=== PATIENT | female | born 1990 | race Caucasian/White ===

== ENCOUNTER 2017-05-26 05:19 | Inpatient (IN) | payer BC ==
[2017-05-26] MEDS ORDERED: Carboprost Tromethamine 250 MCG/1 ML Amp IM PRN (05:28)
[2017-05-26] MEDS ORDERED: Methylergonovine 0.2 MG/1 ML Amp IM PRN (05:28)
[2017-05-26] MEDS ORDERED: Water For Irrigation,Sterile 1,000 ML Container IRR PRN (05:28)
[2017-05-26] MEDS ORDERED: Sodium Chloride 0.9% 10 ML Syringe FLUSH PRN (05:28)
[2017-05-26] MEDS ORDERED: Sodium Chloride 0.9% 2.5 ML Syringe FLUSH PRN (05:28)
[2017-05-26] MEDS ORDERED: Lidocaine 1% 50 ML MDV INJECT PRN (05:28)
[2017-05-26] MEDS ORDERED: Terbutaline 1 MG/ML SDV SUBCUT PRN (05:28)
[2017-05-26] MEDS ORDERED: Nalbuphine 10 MG/1 ML Vial IVPUSH PRN (05:28)
[2017-05-26] MEDS ORDERED: Misoprostol 200 MCG Tab PO PRN (05:28)
[2017-05-26] MEDS ORDERED: Oxytocin/0.9 % Sodium Chloride 30 UNIT/500 ML BAG IV SCH ×2 (05:30)
[2017-05-26] MEDS: Lactated Ringers 1,000 ML IV SCH ×4 (06:00→13:29)
--- NOTE | 2017-05-26 08:41 | PCM.LDHP ---
L&D History of Present Illness - General Date of Service: 05/26/17 Admit Problem/Dx: Patient Status Order with Admit Dx/Problem 05/26/17 05:28 Patient Status [ADT] Routine Admission Diagnosis/Problem Admission Diagnosis/Problem - planned 05/26/17 08:39 26yo EDC 05/22/2017 40 4/7wks, IOL for post dates, A+, RI, GBS neg. 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 Oncologic: Reports: Breast - Tobacco Use Smoking Status *Q: Never Smoker Second Hand Smoke Exposure: No - Caffeine Use Caffeine Use: Reports: Coffee - Recreational Drug Use Recreational Drug Use: No H&P Review of Systems - Review of Systems: Review Of Systems: See Below General: Reports: No Symptoms HEENT: Reports: No Symptoms Pulmonary: Reports: No Symptoms Cardiovascular: Reports: No Symptoms Gastrointestinal: Reports: No Symptoms Genitourinary: Reports: No Symptoms Musculoskeletal: Reports: No Symptoms Skin: Reports: No Symptoms Psychiatric: Reports: No Symptoms Neurological: Reports: No Symptoms Hematologic/Lymphatic: Reports: No Symptoms Immunologic: Reports: No Symptoms L&D Exam - Exam Exam: See Below - Vital Signs Weight: 81.647 kg - OB Specific Movement: Active Heart Tones: Present Heart Rate (FHR) Variability: Moderate (6-25 bmp) Presentation: Vertex - Holloway Score Holloway Score Cervix Position: Midposition Holloway Score Consistency: Soft Holloway Score Effacement: >80% Holloway Score Dilation: 3-4 cm Holloway Score Infant's Station: -2 Holloway Score Total: 9 - Exam General: Alert, Oriented, Cooperative HEENT: Hearing Intact Lungs: Normal Respiratory Effort GI/Abdominal Exam: Soft, Non-Tender, No Organomegaly (gravid) Rectal Exam: Deferred Genitourinary: Normal external exam, Normal bimanual exam, Cervical dilitation Back Exam: Full Range of Motion Extremities: Normal Range of Motion, Non-Tender, No Pedal Edema, Normal Capillary Refill Skin: Warm, Dry, Intact Neurological: Reflexes Equal Bilateral, Normal Speech, Normal Tone Psychiatric: Alert, Normal Affect, Normal Mood - Patient Data Lab Results Last 24 hrs: Laboratory Results - last 24 hr 05/26/17 05/26/17 Range/Units 05:59 05:59 WBC 10.12 (4.0-11.0) K/uL RBC 3.81 L (4.30-5.90) M/uL Hgb 11.9 L (12.0-16.0) g/dL Hct 35.2 L (36.0-46.0) % MCV 92.4 (80.0-98.0) fL MCH 31.2 (27.0-32.0) pg MCHC 33.8 (31.0-37.0) g/dL RDW Std Deviation 46.5 (28.0-62.0) fl RDW Coeff of Karly 14 (11.0-15.0) % Plt Count 323 (150-400) K/uL MPV 10.10 (7.40-12.00) fL Nucleated RBC % 0.0 /100WBC Nucleated RBCs # 0 K/uL Blood Type A POSITIVE Antibody Screen NEGATIVE Result Diagrams: 05/26/17 05:59 - Problem List (1) Supervision of normal IUP (intrauterine ) in primigravida SNOMED Code(s): 12526041, 400821971, 459133909 ICD Code: Z34.00 - ENCNTR FOR SUPRVSN OF NORMAL FIRST , UNSP TRIMESTER Status: Acute Current Visit: Yes Qualifiers: Trimester: third trimester Qualified Code(s): Z34.03 - Encounter for supervision of normal first , third trimester (2) Post-dates SNOMED Code(s): 35003113 ICD Code: O48.0 - POST-TERM Status: Acute Priority: High Current Visit: Yes Qualifiers: Post-term type: 40-42 weeks gestation Qualified Code(s): O48.0 - Post-term Problem List Initiated/Reviewed/Updated: Yes Orders Last 24hrs: Active Orders 24 hr Category Date Time Status Patient Status [ADT] Routine ADT 05/26/17 05:28 Active Communication Order [RC] ASDIRECTED Care 05/26/17 05:28 Active May Shower [RC] ASDIRECTED Care 05/26/17 05:28 Active Notify Provider [RC] PRN Care 05/26/17 05:28 Active Oxygen Therapy [RC] ASDIRECTED Care 05/26/17 05:28 Active Up ad Elaine [RC] ASDIRECTED Care 05/26/17 05:28 Active Vital Signs [RC] PER UNIT ROUTINE Care 05/26/17 05:28 Active Regular Diet [DIET] Diet 05/26/17 Breakfast Active Carboprost Tromethamine [Hemabate DS] Med 05/26/17 05:28 Active 250 mcg IM ASDIRECTED PRN Lactated Ringers [Ringers, Lactated] 1,000 ml Med 05/26/17 05:30 Active IV ASDIRECTED Lidocaine 1% [Xylocaine 1%] Med 05/26/17 05:28 Active 50 ml INJECT .ONCE PRN Methylergonovine [Methergine] Med 05/26/17 05:28 Active 0.2 mg IM ASDIRECTED PRN Misoprostol [Cytotec] Med 05/26/17 05:28 Active 200 mcg PO .ONCE PRN Nalbuphine [Nubain] Med 05/26/17 05:28 Active 10 mg IVPUSH Q1H PRN Oxytocin/0.9 % Sodium Chloride [Oxytocin 30 Unit/500 ML Med 05/26/17 05:30 Active -NS] 30 unit in 500 ml IV TITRATE Oxytocin/0.9 % Sodium Chloride [Oxytocin 30 Unit/500 ML Med 05/26/17 05:30 Active -NS] 30 unit in 500 ml IV TITRATE Sodium Chloride 0.9% [Saline Flush] Med 05/26/17 05:28 Active 10 ml FLUSH ASDIRECTED PRN Sodium Chloride 0.9% [Saline Flush] Med 05/26/17 05:28 Active 2.5 ml FLUSH ASDIRECTED PRN Terbutaline [Brethine] Med 05/26/17 05:28 Active 0.25 mg SUBCUT ASDIRECTED PRN Water For Irrigation,Sterile [Sterile Water for Med 05/26/17 05:28 Active Irrigation] 1,000 ml IRR ASDIRECTED PRN Scalp Electrode [WOMSER] Per Unit Routine Oth 05/26/17 05:28 Ordered Medication Administration Instruction [OM.PC] Q3H Oth 05/26/17 05:30 Ordered Peripheral IV Insertion Adult [OM.PC] Routine Oth 05/26/17 05:28 Ordered Resuscitation Status Routine Resus Stat 05/26/17 05:28 Ordered Medication Orders Carboprost Tromethamine (Hemabate Ds) 250 mcg IM ASDIRECTED PRN PRN Reason: Post Hemorrhage Lactated Ringer's (Ringers, Lactated) 1,000 mls @ 150 mls/hr IV ASDIRECTED MARCO A Last Admin: 05/26/17 06:00 Dose: 150 mls/hr Oxytocin/Sodium Chloride (Oxytocin 30 Unit/500 Ml-Ns) 30 unit in 500 mls @ 500 mls/hr IV TITRATE MARCO A Oxytocin/Sodium Chloride (Oxytocin 30 Unit/500 Ml-Ns) 30 unit in 500 mls @ 2 mls/hr IV TITRATE MARCO A; 2 MUNITS/MIN PRN Reason: Protocol Last Titration: 05/26/17 08:15 Dose: 6 munits/min, 6 mls/hr Titration: 05/26/17 07:46 Dose: 4 munits/min, 4 mls/hr Admin: 05/26/17 06:29 Dose: 2 munits/min, 2 mls/hr Lidocaine HCl (Xylocaine 1%) 50 ml INJECT .ONCE PRN PRN Reason: Laceration repair Methylergonovine Maleate (Methergine) 0.2 mg IM ASDIRECTED PRN PRN Reason: Post Hemorrhage Misoprostol (Cytotec) 200 mcg PO .ONCE PRN PRN Reason: Post Hemorrhage Nalbuphine HCl (Nubain) 10 mg IVPUSH Q1H PRN PRN Reason: Pain (severe 7-10) Sodium Chloride (Saline Flush) 10 ml FLUSH ASDIRECTED PRN PRN Reason: Keep Vein Open Sodium Chloride (Saline Flush) 2.5 ml FLUSH ASDIRECTED PRN PRN Reason: Keep Vein Open Sterile Water (Sterile Water For Irrigation) 1,000 ml IRR ASDIRECTED PRN PRN Reason: delivery Terbutaline Sulfate (Brethine) 0.25 mg SUBCUT ASDIRECTED PRN PRN Reason: Tacysystole Assessment/Plan Comment:: IOL A: 26yo EDC 05/22/2017 40 4/7wks, IOL for post dates, A+, RI, GBS neg. P: Admit to L&D, pitocin per protocol, anticipate .
[2017-05-26] MEDS ORDERED: fentaNYL 100 MCG/2 ML SDV ONE (13:13)
[2017-05-26] MEDS ORDERED: Ropivacaine HCl/PF 100 ML ONE (13:14)
--- NOTE | 2017-05-26 14:36 | PCM.PREANE ---
Preanesthetic Assessment - Procedure Proposed Procedure: labor epidural - Anesthesia/Transfusion/Family Hx Anesthesia History: Prior Anesthesia Without Reaction Family History of Anesthesia Reaction: No Transfusion History: No Prior Transfusion(s) Intubation History: Unknown Additional History: - Review of Systems General: Other (active labor pain) Pulmonary: No Symptoms Cardiovascular: No Symptoms Gastrointestinal: No Symptoms, Other (GERD) Neurological: Other (labor pain) - Physical Assessment NPO Status Date: 05/25/17 NPO Status Time: 23:00 Height: 5 ft 3 in Weight: 180 lb ASA Class: 2 Mental Status: Alert & Oriented x3 Airway Class: Mallampati = 1 Dentition: Reports: Normal Dentition Thyro-Mental Finger Breadths: 3 Mouth Opening Finger Breadths: 3 ROM/Head Extension: Full Lungs: Clear to Auscultation, Normal Respiratory Effort Cardiovascular: Regular Rate, Regular Rhythm, No Murmurs - Lab Values: Laboratory Last Values WBC 10.12 K/uL (4.0-11.0) 05/26/17 05:59 RBC 3.81 M/uL (4.30-5.90) L 05/26/17 05:59 Hgb 11.9 g/dL (12.0-16.0) L 05/26/17 05:59 Hct 35.2 % (36.0-46.0) L 05/26/17 05:59 MCV 92.4 fL (80.0-98.0) 05/26/17 05:59 MCH 31.2 pg (27.0-32.0) 05/26/17 05:59 MCHC 33.8 g/dL (31.0-37.0) 05/26/17 05:59 RDW Std Deviation 46.5 fl (28.0-62.0) 05/26/17 05:59 RDW Coeff of Karly 14 % (11.0-15.0) 05/26/17 05:59 Plt Count 323 K/uL (150-400) 05/26/17 05:59 MPV 10.10 fL (7.40-12.00) 05/26/17 05:59 Nucleated RBC % 0.0 /100WBC 05/26/17 05:59 Nucleated RBCs # 0 K/uL 05/26/17 05:59 Blood Type A POSITIVE 05/26/17 05:59 Antibody Screen NEGATIVE 05/26/17 05:59 - Allergies Allergies/Adverse Reactions: Allergies Allergy/AdvReac Type Severity Reaction Status Date / Time No Known Allergies Allergy Verified 05/26/17 05:27 - Blood Blood Available: No Product(s) Available: None - Anesthesia Plan Pre-Op Medication Ordered: None - Acknowledgements Anesthesia Type Planned: Epidural Pt an Appropriate Candidate for the Planned Anesthesia: Yes Alternatives and Risks of Anesthesia Discussed w Pt/Guardian: Yes Pt/Guardian Understands and Agrees with Anesthesia Plan: Yes PreAnesthesia Questionnaire - Past Health History Medical/Surgical History: Denies 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: - Infectious Disease History Infectious Disease History: Reports: Chicken Pox - Past Surgical History HEENT Surgical History: Reports: Oral Surgery - SUBSTANCE USE Smoking Status *Q: Never Smoker Tobacco Use Within Last Twelve Months: No Second Hand Smoke Exposure: No Recreational Drug Use History: No - CURRENT (IN HOUSE) MEDS Current Meds: Current Medications Carboprost Tromethamine (Hemabate Ds) 250 mcg IM ASDIRECTED PRN PRN Reason: Post Hemorrhage Lactated Ringer's (Ringers, Lactated) 1,000 mls @ 150 mls/hr IV ASDIRECTED MARCO A Last Admin: 05/26/17 13:29 Dose: 150 mls/hr Oxytocin/Sodium Chloride (Oxytocin 30 Unit/500 Ml-Ns) 30 unit in 500 mls @ 500 mls/hr IV TITRATE MARCO A Oxytocin/Sodium Chloride (Oxytocin 30 Unit/500 Ml-Ns) 30 unit in 500 mls @ 2 mls/hr IV TITRATE MARCO A; 2 MUNITS/MIN PRN Reason: Protocol Last Titration: 05/26/17 11:51 Dose: 6 munits/min, 6 mls/hr Lidocaine HCl (Xylocaine 1%) 50 ml INJECT .ONCE PRN PRN Reason: Laceration repair Methylergonovine Maleate (Methergine) 0.2 mg IM ASDIRECTED PRN PRN Reason: Post Hemorrhage Misoprostol (Cytotec) 200 mcg PO .ONCE PRN PRN Reason: Post Hemorrhage Nalbuphine HCl (Nubain) 10 mg IVPUSH Q1H PRN PRN Reason: Pain (severe 7-10) Sodium Chloride (Saline Flush) 10 ml FLUSH ASDIRECTED PRN PRN Reason: Keep Vein Open Sodium Chloride (Saline Flush) 2.5 ml FLUSH ASDIRECTED PRN PRN Reason: Keep Vein Open Sterile Water (Sterile Water For Irrigation) 1,000 ml IRR ASDIRECTED PRN PRN Reason: delivery Terbutaline Sulfate (Brethine) 0.25 mg SUBCUT ASDIRECTED PRN PRN Reason: Tacysystole Discontinued Medications Fentanyl (Sublimaze) Confirm Administered Dose 100 mcg .ROUTE .STK-MED ONE Stop: 05/26/17 13:14 Ropivacaine (Naropin 0.2%) Confirm Administered Dose 100 mls @ as directed .ROUTE .STK-MED ONE Stop: 05/26/17 13:15
[2017-05-26] MEDS ORDERED: Docusate Sodium 100 MG Cap PO PRN (19:39)
[2017-05-26] MEDS ORDERED: Acetaminophen 500 MG Tab PO PRN ×2 (19:39)
[2017-05-26] MEDS ORDERED: Lanolin 100% Cream 7 GM Tube TOP PRN (19:39)
[2017-05-26] MEDS ORDERED: Bisacodyl 10 MG Supp RECTAL PRN (19:39)
[2017-05-26] MEDS ORDERED: Ibuprofen 400 MG Tab PO PRN (19:39)
[2017-05-26] MEDS ORDERED: Witch Hazel Medicated Pads 40/Jar TOP PRN (19:39)
[2017-05-26] MEDS ORDERED: Benzocaine/Menthol 20%-0.5% Spray 78 GM Cannister TOP PRN (19:39)
[2017-05-26] MEDS ORDERED: oxyCODONE 5 MG Tab PO PRN (19:39)
--- NOTE | 2017-05-26 19:47 | PCM.DEL ---
L & D Note - General Info Date of Service: 05/26/17 Mother's Due Date: 05/22/17 - Delivery Note Labor: Induced by Oxytocin Delivery Outcome: Livebirth Delivery Method: Spontaneous Vaginal Delivery-Single Infant Delivery Mode: Spontaneous Presentation: Vertex Nuchal Cord: Present Anesthesia Type: Epidural Amniotic Fluid Description: Meconium Stained Episiotomy Type: None Laceration: 1st Degree, Perineal Suture type: Vicryl Suture size: 3-0 Placenta: Intact, Spontaneous Cord: 3 Vessels Estimated Blood Loss: 150 Resuscitation Needed: No Score 1 min: 8 Score 5 min: 9 Second Stage Interventions: Reports: Pushing Effectively Delivery Comments (Free Text/Narrative):: of viable male over intact perineum. Head delivered with great pushing. Nuchel x1 reduced over head, shoulders and body followed easily. to mothers abd with RN at for eval. Delayed cord clamping. Pitocin to IVF. Cord clamped x2 and cut by FOB. Cord blood collected. Placenta delivered grossly intact. Inspection noted 1st degree lac that was repaired in the usual manor with 3-0 [place]. Bimanual WNL. EBL 150cc, 8/9. Wt: 7lb 15oz. counts correct. Mother and infant left in stable condition bonding well. Induction Criteria - Holloway Score Holloway Score Dilation: 3-4 cm Holloway Score Effacement: >80% Holloway Score Infant's Station: -2 Holloway Score Consistency: Soft Holloway Score Cervix Position: Midposition Holloway Score Total: 9 Holloway Score Presenting Part: Reports: Cephalic - Induction Gestational Age >/= 39 wks: Yes Medical Indication: post dates Estimated Pelvis: Reports: Adequate Reassuring Monitoring Strip: Yes Absence of Tachy Systole: Yes - General Info Date of Service: 05/26/17 Admission Dx/Problem (Free Text): Patient Status Order with Admit Dx/Problem 05/26/17 05:28 Patient Status [ADT] Routine Admission Diagnosis/Problem Admission Diagnosis/Problem - planned 05/26/17 08:39 26yo EDC 05/22/2017 40 4/7wks, IOL for post dates, A+, RI, GBS neg. Functional Status: Reports: Pain Controlled - Review of Systems General: Reports: No Symptoms HEENT: Reports: No Symptoms Pulmonary: Reports: No Symptoms Cardiovascular: Reports: No Symptoms Gastrointestinal: Reports: No Symptoms Genitourinary: Reports: No Symptoms Musculoskeletal: Reports: No Symptoms Skin: Reports: No Symptoms Neurological: Reports: No Symptoms Psychiatric: Reports: No Symptoms - Patient Data Weight - Most Recent: 81.647 kg Lab Results Last 24 Hours: Laboratory Results - last 24 hr 05/26/17 05/26/17 Range/Units 05:59 05:59 WBC 10.12 (4.0-11.0) K/uL RBC 3.81 L (4.30-5.90) M/uL Hgb 11.9 L (12.0-16.0) g/dL Hct 35.2 L (36.0-46.0) % MCV 92.4 (80.0-98.0) fL MCH 31.2 (27.0-32.0) pg MCHC 33.8 (31.0-37.0) g/dL RDW Std Deviation 46.5 (28.0-62.0) fl RDW Coeff of Karly 14 (11.0-15.0) % Plt Count 323 (150-400) K/uL MPV 10.10 (7.40-12.00) fL Nucleated RBC % 0.0 /100WBC Nucleated RBCs # 0 K/uL Blood Type A POSITIVE Antibody Screen NEGATIVE Med Orders - Current: Current Medications Acetaminophen (Tylenol Extra Strength) 500 mg PO Q4H PRN PRN Reason: Pain Acetaminophen (Tylenol Extra Strength) 1,000 mg PO Q4H PRN PRN Reason: Pain Benzocaine/Menthol (Dermoplast Pain Relief 20%-0.5% Nursery) 78 gm TOP ASDIRECTED PRN PRN Reason: Perineal Comfort Measure Bisacodyl (Dulcolax) 10 mg RECTAL .ONCE PRN PRN Reason: Constipation Docusate Sodium (Colace) 100 mg PO BID PRN PRN Reason: Constipation Emollient Ointment (Lansinoh Hpa) 0 gm TOP ASDIRECTED PRN PRN Reason: Sore Nipples Ibuprofen (Motrin) 400 mg PO Q4H PRN PRN Reason: Pain Ibuprofen (Motrin) 800 mg PO Q6H PRN PRN Reason: Pain Oxycodone HCl (Oxycodone) 5 mg PO Q2H PRN PRN Reason: Pain Discontinued Medications Carboprost Tromethamine (Hemabate Ds) 250 mcg IM ASDIRECTED PRN PRN Reason: Post Hemorrhage Fentanyl (Sublimaze) Confirm Administered Dose 100 mcg .ROUTE .STK-MED ONE Stop: 05/26/17 13:14 Lactated Ringer's (Ringers, Lactated) 1,000 mls @ 150 mls/hr IV ASDIRECTED MARCO A Last Admin: 05/26/17 13:29 Dose: 150 mls/hr Oxytocin/Sodium Chloride (Oxytocin 30 Unit/500 Ml-Ns) 30 unit in 500 mls @ 500 mls/hr IV TITRATE MARCO A Oxytocin/Sodium Chloride (Oxytocin 30 Unit/500 Ml-Ns) 30 unit in 500 mls @ 2 mls/hr IV TITRATE MARCO A; 2 MUNITS/MIN PRN Reason: Protocol Last Titration: 05/26/17 11:51 Dose: 6 munits/min, 6 mls/hr Ropivacaine (Naropin 0.2%) Confirm Administered Dose 100 mls @ as directed .ROUTE .Cuculus ONE Stop: 05/26/17 13:15 Lidocaine HCl (Xylocaine 1%) 50 ml INJECT .ONCE PRN PRN Reason: Laceration repair Methylergonovine Maleate (Methergine) 0.2 mg IM ASDIRECTED PRN PRN Reason: Post Hemorrhage Misoprostol (Cytotec) 200 mcg PO .ONCE PRN PRN Reason: Post Hemorrhage Nalbuphine HCl (Nubain) 10 mg IVPUSH Q1H PRN PRN Reason: Pain (severe 7-10) Sodium Chloride (Saline Flush) 10 ml FLUSH ASDIRECTED PRN PRN Reason: Keep Vein Open Sodium Chloride (Saline Flush) 2.5 ml FLUSH ASDIRECTED PRN PRN Reason: Keep Vein Open Sterile Water (Sterile Water For Irrigation) 1,000 ml IRR ASDIRECTED PRN PRN Reason: delivery Terbutaline Sulfate (Brethine) 0.25 mg SUBCUT ASDIRECTED PRN PRN Reason: Tacysystole - Exam General: Alert, Oriented, Cooperative, No Acute Distress Lungs: Normal Respiratory Effort GI/Abdominal Exam: Soft, Non-Tender (Female) Exam: Normal External Exam, Normal Bimanual Exam, Vaginal Bleeding Back Exam: Full Range of Motion Extremities: Normal Range of Motion, Non-Tender, No Pedal Edema, Normal Capillary Refill Skin: Warm, Dry, Intact Wound/Incisions: Healing Well Neurological: No New Focal Deficit, Normal Speech, Normal Tone Psy/Mental Status: Alert, Normal Affect, Normal Mood - Problem List & Annotations (1) Supervision of normal IUP (intrauterine ) in primigravida SNOMED Code(s): 86084378, 811800983, 073116635 Code(s): Z34.00 - ENCNTR FOR SUPRVSN OF NORMAL FIRST , UNSP TRIMESTER Status: Acute Current Visit: Yes Qualifiers: Trimester: third trimester Qualified Code(s): Z34.03 - Encounter for supervision of normal first , third trimester (2) Post-dates SNOMED Code(s): 89462690 Code(s): O48.0 - POST-TERM Status: Acute Priority: High Current Visit: Yes Qualifiers: Post-term type: 40-42 weeks gestation Qualified Code(s): O48.0 - Post-term - Problem List Review Problem List Initiated/Reviewed/Updated: Yes - My Orders Last 24 Hours: My Active Orders 05/26/17 19:39 May Shower [RC] ASDIRECTED Up ad Elaine [RC] ASDIRECTED Vital Signs [RC] PER UNIT ROUTINE Acetaminophen [Tylenol Extra Strength] 1,000 mg PO Q4H PRN Acetaminophen [Tylenol Extra Strength] 500 mg PO Q4H PRN Benzocaine/Menthol [Dermoplast Pain Relief 20%-0.5% Nursery] 78 gm TOP ASDIRECTED PRN Bisacodyl [Dulcolax] 10 mg RECTAL .ONCE PRN Docusate Sodium [Colace] 100 mg PO BID PRN Ibuprofen [Motrin] 400 mg PO Q4H PRN Ibuprofen [Motrin] 800 mg PO Q6H PRN Lanolin [Lansinoh HPA] See Dose Instructions TOP ASDIRECTED PRN Witch Kaitlynn [Tucks] 1 pad TOP ASDIRECTED PRN oxyCODONE 5 mg PO Q2H PRN Assess Lochia [WOMSER] Per Unit Routine Assess Uterine Involution [WOMSER] Per Unit Routine Peripheral IV Discontinue [OM.PC] Routine Resuscitation Status Routine 05/26/17 19:40 Patient Status [ADT] Routine 05/27/17 Breakfast Regular Diet [DIET] - Assessment Assessment:: A: of viable male. APGARS 8/9, Wt: 7lb 15oz. EBL 150cc, 1st lac with repair. Stable - Plan Plan:: IOL A: 26yo EDC 05/22/2017 40 4/7wks, IOL for post dates, A+, RI, GBS neg. P: Admit to L&D, pitocin per protocol, anticipate . Delivery P: Admit to PP, routine pp plan of care.
[2017-05-26] MEDS: Ibuprofen 800 MG Tab PO PRN (22:51)
--- NOTE | 2017-05-27 07:09 | PCM.DCSUM1 ---
Discharge Summary - Hospital Course Free Text/Narrative:: Discharge home with son. Follow up in 6 weeks for post or sooner if needed. - Discharge Data Discharge Date: 05/27/17 Discharge Disposition: Home, Self-Care 01 Condition: Good - Discharge Diagnosis/Problem(s) (1) Supervision of normal IUP (intrauterine ) in primigravida SNOMED Code(s): 22273615, 072288047, 584883869 ICD Code: Z34.00 - ENCNTR FOR SUPRVSN OF NORMAL FIRST , UNSP TRIMESTER Status: Acute Current Visit: Yes Qualifiers: Trimester: third trimester Qualified Code(s): Z34.03 - Encounter for supervision of normal first , third trimester (2) Post-dates SNOMED Code(s): 94925170 ICD Code: O48.0 - POST-TERM Status: Acute Priority: High Current Visit: Yes Qualifiers: Post-term type: 40-42 weeks gestation Qualified Code(s): O48.0 - Post-term - Patient Instructions Diet: Usual Diet as Tolerated Activity: As Tolerated, Rest and Relax Today Driving: May Drive Today Showering/Bathing: May Shower Notify Provider of: Fever, Increased Pain, Swelling and Redness, Nausea and/or Vomiting Other/Special Instructions: Discharge home with son. Follow up in 6 weeks for post or sooner if needed. - Discharge Plan Referrals: [facility] [Outside] Edie Barnes CNM [Mid-] - 07/09/17 9:30 am - General Info Date of Service: 05/27/17 Admission Dx/Problem (Free Text: Patient Status Order with Admit Dx/Problem 05/26/17 05:28 Patient Status [ADT] Routine Admission Diagnosis/Problem Admission Diagnosis/Problem - planned 05/26/17 08:39 26yo EDC 05/22/2017 40 4/7wks, IOL for post dates, A+, RI, GBS neg. Functional Status: Reports: Pain Controlled, Tolerating Diet, Ambulating, Urinating - Review of Systems General: Reports: No Symptoms HEENT: Reports: No Symptoms Pulmonary: Reports: No Symptoms Cardiovascular: Reports: No Symptoms Gastrointestinal: Reports: No Symptoms Genitourinary: Reports: No Symptoms Musculoskeletal: Reports: No Symptoms Skin: Reports: No Symptoms Neurological: Reports: No Symptoms Psychiatric: Reports: No Symptoms - Patient Data Vitals - Most Recent: Last Vital Signs Temp 36.9 C 05/27/17 04:00 Pulse 72 05/27/17 04:00 Resp 16 05/27/17 04:00 BP 105/56 L 05/27/17 04:00 Pulse Ox 98 05/27/17 04:00 Weight - Most Recent: 81.647 kg Med Orders - Current: Current Medications Acetaminophen (Tylenol Extra Strength) 500 mg PO Q4H PRN PRN Reason: Pain Acetaminophen (Tylenol Extra Strength) 1,000 mg PO Q4H PRN PRN Reason: Pain Benzocaine/Menthol (Dermoplast Pain Relief 20%-0.5% [place]) 78 gm TOP ASDIRECTED PRN PRN Reason: Perineal Comfort Measure Last Admin: 05/26/17 21:33 Dose: 1 sprays Bisacodyl (Dulcolax) 10 mg RECTAL .ONCE PRN PRN Reason: Constipation Docusate Sodium (Colace) 100 mg PO BID PRN PRN Reason: Constipation Emollient Ointment (Lansinoh Hpa) 0 gm TOP ASDIRECTED PRN PRN Reason: Sore Nipples Last Admin: 05/26/17 21:34 Dose: 1 applic Ibuprofen (Motrin) 400 mg PO Q4H PRN PRN Reason: Pain Ibuprofen (Motrin) 800 mg PO Q6H PRN PRN Reason: Pain Last Admin: 05/26/17 22:51 Dose: 800 mg Oxycodone HCl (Oxycodone) 5 mg PO Q2H PRN PRN Reason: Pain Witch Kaitlynn (Tucks) 1 pad TOP ASDIRECTED PRN PRN Reason: comfort care Last Admin: 05/26/17 21:33 Dose: 1 applic Discontinued Medications Carboprost Tromethamine (Hemabate Ds) 250 mcg IM ASDIRECTED PRN PRN Reason: Post Hemorrhage Fentanyl (Sublimaze) Confirm Administered Dose 100 mcg .ROUTE .STK-MED ONE Stop: 05/26/17 13:14 Lactated Ringer's (Ringers, Lactated) 1,000 mls @ 150 mls/hr IV ASDIRECTED MARCO A Last Admin: 05/26/17 13:29 Dose: 150 mls/hr Oxytocin/Sodium Chloride (Oxytocin 30 Unit/500 Ml-Ns) 30 unit in 500 mls @ 500 mls/hr IV TITRATE MARCO A Oxytocin/Sodium Chloride (Oxytocin 30 Unit/500 Ml-Ns) 30 unit in 500 mls @ 2 mls/hr IV TITRATE MARCO A; 2 MUNITS/MIN PRN Reason: Protocol Last Titration: 05/26/17 11:51 Dose: 6 munits/min, 6 mls/hr Ropivacaine (Naropin 0.2%) Confirm Administered Dose 100 mls @ as directed .ROUTE .[facility] ONE Stop: 05/26/17 13:15 Lidocaine HCl (Xylocaine 1%) 50 ml INJECT .ONCE PRN PRN Reason: Laceration repair Methylergonovine Maleate (Methergine) 0.2 mg IM ASDIRECTED PRN PRN Reason: Post Hemorrhage Misoprostol (Cytotec) 200 mcg PO .ONCE PRN PRN Reason: Post Hemorrhage Nalbuphine HCl (Nubain) 10 mg IVPUSH Q1H PRN PRN Reason: Pain (severe 7-10) Sodium Chloride (Saline Flush) 10 ml FLUSH ASDIRECTED PRN PRN Reason: Keep Vein Open Sodium Chloride (Saline Flush) 2.5 ml FLUSH ASDIRECTED PRN PRN Reason: Keep Vein Open Sterile Water (Sterile Water For Irrigation) 1,000 ml IRR ASDIRECTED PRN PRN Reason: delivery Terbutaline Sulfate (Brethine) 0.25 mg SUBCUT ASDIRECTED PRN PRN Reason: Tacysystole - Exam General: Reports: Alert, Oriented, Cooperative, No Acute Distress Lungs: Reports: Normal Respiratory Effort GI/Abdominal Exam: Soft, Non-Tender (Female) Exam: Vaginal Bleeding Rectal (Female) Exam: Deferred Back Exam: Reports: Full Range of Motion Extremities: Normal Range of Motion, Non-Tender, No Pedal Edema, Normal Capillary Refill Skin: Reports: Warm, Dry, Intact Wound/Incisions: Reports: Healing Well Neurological: Reports: No New Focal Deficit, Normal Speech, Normal Tone Psy/Mental Status: Reports: Alert, Normal Affect, Normal Mood *Q Meaningful Use (DIS) - VTE *Q VTE Criteria *Q: - Stroke *Q Stroke Criteria *Q: - AMI *Q AMI Criteria *Q:
[2017-05-27] MEDS: Ibuprofen 800 MG Tab PO PRN (10:55)
--- NOTE | 2017-05-27 14:46 | PCM48HPAN ---
Post Anesthesia Note - EVALUATION WITHIN 48HRS OF ANESTHETIC Vital Signs in Normal Range: Yes Patient Participated in Evaluation: Yes Respiratory Function Stable: Yes Airway Patent: Yes Cardiovascular Function Stable: Yes Hydration Status Stable: Yes Pain Control Satisfactory: Yes Nausea and Vomiting Control Satisfactory: Yes Mental Status Recovered: Yes - COMMENTS/OBSERVATIONS Free Text/Narrative:: Cath removed intact per RN.
[2017-05-28] MEDS: Ibuprofen 800 MG Tab PO PRN (08:25)
--- NOTE | 2017-05-28 09:15 | PCM.DCSUM1 ---
Discharge Summary - Hospital Course Free Text/Narrative:: Discharge home with son. Follow up in 6 weeks or sooner if needed. - Discharge Data Discharge Date: 05/28/17 Discharge Disposition: Home, Self-Care 01 Condition: Good - Discharge Diagnosis/Problem(s) (1) Supervision of normal IUP (intrauterine ) in primigravida SNOMED Code(s): 20259960, [id number], [id number] ICD Code: Z34.00 - ENCNTR FOR SUPRVSN OF NORMAL FIRST , UNSP TRIMESTER Status: Acute Current Visit: Yes Qualifiers: Trimester: third trimester Qualified Code(s): Z34.03 - Encounter for supervision of normal first , third trimester (2) Post-dates SNOMED Code(s): 75526982 ICD Code: O48.0 - POST-TERM Status: Acute Priority: High Current Visit: Yes Qualifiers: Post-term type: 40-42 weeks gestation Qualified Code(s): O48.0 - Post-term - Patient Instructions Diet: Usual Diet as Tolerated Activity: As Tolerated, Rest and Relax Today Driving: May Drive Today Showering/Bathing: May Shower Notify Provider of: Fever, Increased Pain, Swelling and Redness, Nausea and/or Vomiting Other/Special Instructions: Discharge home with son. Follow up in 6 weeks for post or sooner if needed. - Discharge Plan Patient Handouts: Vaginal Delivery, Care After Referrals: [facility] [Outside] Edie Barnes CNM [Mid-] - 07/09/17 9:30 am - General Info Date of Service: 05/28/17 Functional Status: Reports: Pain Controlled, Tolerating Diet, Ambulating - Review of Systems General: Reports: No Symptoms HEENT: Reports: No Symptoms Pulmonary: Reports: No Symptoms Cardiovascular: Reports: No Symptoms Gastrointestinal: Reports: No Symptoms Genitourinary: Reports: No Symptoms Musculoskeletal: Reports: No Symptoms Skin: Reports: No Symptoms Neurological: Reports: No Symptoms Psychiatric: Reports: No Symptoms - Patient Data Vitals - Most Recent: Last Vital Signs Temp 36.7 C 05/28/17 08:50 Pulse 81 05/28/17 08:50 Resp 16 05/28/17 08:50 BP 115/64 05/28/17 08:50 Pulse Ox 98 05/28/17 08:50 Weight - Most Recent: 81.647 kg Med Orders - Current: Current Medications Acetaminophen (Tylenol Extra Strength) 500 mg PO Q4H PRN PRN Reason: Pain Acetaminophen (Tylenol Extra Strength) 1,000 mg PO Q4H PRN PRN Reason: Pain Benzocaine/Menthol (Dermoplast Pain Relief 20%-0.5% [place]) 78 gm TOP ASDIRECTED PRN PRN Reason: Perineal Comfort Measure Last Admin: 05/26/17 21:33 Dose: 1 sprays Bisacodyl (Dulcolax) 10 mg RECTAL .ONCE PRN PRN Reason: Constipation Docusate Sodium (Colace) 100 mg PO BID PRN PRN Reason: Constipation Last Admin: 05/27/17 10:57 Dose: 100 mg Emollient Ointment (Lansinoh Hpa) 0 gm TOP ASDIRECTED PRN PRN Reason: Sore Nipples Last Admin: 05/26/17 21:34 Dose: 1 applic Ibuprofen (Motrin) 400 mg PO Q4H PRN PRN Reason: Pain Ibuprofen (Motrin) 800 mg PO Q6H PRN PRN Reason: Pain Last Admin: 05/28/17 08:25 Dose: 800 mg Oxycodone HCl (Oxycodone) 5 mg PO Q2H PRN PRN Reason: Pain Witch Kaitlynn (Tucks) 1 pad TOP ASDIRECTED PRN PRN Reason: comfort care Last Admin: 05/26/17 21:33 Dose: 1 applic Discontinued Medications Carboprost Tromethamine (Hemabate Ds) 250 mcg IM ASDIRECTED PRN PRN Reason: Post Hemorrhage Fentanyl (Sublimaze) Confirm Administered Dose 100 mcg .ROUTE .STK-MED ONE Stop: 05/26/17 13:14 Lactated Ringer's (Ringers, Lactated) 1,000 mls @ 150 mls/hr IV ASDIRECTED MARCO A Last Admin: 05/26/17 13:29 Dose: 150 mls/hr Oxytocin/Sodium Chloride (Oxytocin 30 Unit/500 Ml-Ns) 30 unit in 500 mls @ 500 mls/hr IV TITRATE MARCO A Oxytocin/Sodium Chloride (Oxytocin 30 Unit/500 Ml-Ns) 30 unit in 500 mls @ 2 mls/hr IV TITRATE MARCO A; 2 MUNITS/MIN PRN Reason: Protocol Last Titration: 05/26/17 11:51 Dose: 6 munits/min, 6 mls/hr Ropivacaine (Naropin 0.2%) Confirm Administered Dose 100 mls @ as directed .ROUTE .[facility] ONE Stop: 05/26/17 13:15 Lidocaine HCl (Xylocaine 1%) 50 ml INJECT .ONCE PRN PRN Reason: Laceration repair Methylergonovine Maleate (Methergine) 0.2 mg IM ASDIRECTED PRN PRN Reason: Post Hemorrhage Misoprostol (Cytotec) 200 mcg PO .ONCE PRN PRN Reason: Post Hemorrhage Nalbuphine HCl (Nubain) 10 mg IVPUSH Q1H PRN PRN Reason: Pain (severe 7-10) Sodium Chloride (Saline Flush) 10 ml FLUSH ASDIRECTED PRN PRN Reason: Keep Vein Open Sodium Chloride (Saline Flush) 2.5 ml FLUSH ASDIRECTED PRN PRN Reason: Keep Vein Open Sterile Water (Sterile Water For Irrigation) 1,000 ml IRR ASDIRECTED PRN PRN Reason: delivery Terbutaline Sulfate (Brethine) 0.25 mg SUBCUT ASDIRECTED PRN PRN Reason: Tacysystole - Exam General: Reports: Alert, Oriented, Cooperative, No Acute Distress Lungs: Reports: Normal Respiratory Effort GI/Abdominal Exam: Soft, Non-Tender (Female) Exam: Vaginal Bleeding Rectal (Female) Exam: Deferred Back Exam: Reports: Full Range of Motion Extremities: Normal Range of Motion, Non-Tender, No Pedal Edema, Normal Capillary Refill Skin: Reports: Warm, Dry, Intact Wound/Incisions: Reports: Healing Well Neurological: Reports: No New Focal Deficit, Normal Speech, Normal Tone Psy/Mental Status: Reports: Alert, Normal Affect, Normal Mood *Q Meaningful Use (DIS) - VTE *Q VTE Criteria *Q: - Stroke *Q Stroke Criteria *Q: - AMI *Q AMI Criteria *Q:
== END 2017-05-28 12:45 | disposition home or self-care (01) | DRG 560 ==
LOC: MW.OBCHECK 05:19 → MW.OB 05:22 → MW.OBCHECK 05:28 → OBSVTOIN 19:15 → MW.OB 22:36
PROVIDERS: ADMIT Obstetrics & Gynecology; ATTEND Obstetrics & Gynecology
PROC: 10E0XZZ Delivery of Products of Conception, External Approach (ICD-10-PCS; principal; 2017-05-26)
PROC: 3E0P3VZ Introduction of Hormone into Female Reproductive, Percutaneous Approach (ICD-10-PCS; 2017-05-26)
PROC: 0HQ9XZZ Repair Perineum Skin, External Approach (ICD-10-PCS; 2017-05-26)
DX: O48.0 Post-term pregnancy (principal); O70.0 First degree perineal laceration during delivery; O77.0 Labor and delivery complicated by meconium in amniotic fluid; O69.1XX0 Labor and delivery complicated by cord around neck, with compression, not applicable or unspecified; Z3A.40 40 weeks gestation of pregnancy; Z37.0 Single live birth
CPT/HCPCS: 51702; 59025; 59409; 85027; 86850; 86900; 86901; A9270-GY; J2590; J7120

== ENCOUNTER 2019-08-06 10:53 | Inpatient (IN) | payer BC ==
[2019-08-06] MEDS ORDERED: Tranexamic Acid 1,000 MG in Sodium Chloride 0.9% 100 ML IV PRN (11:26)
[2019-08-06] MEDS ORDERED: Nalbuphine 10 MG/1 ML Vial IVPUSH PRN (11:26)
[2019-08-06] MEDS ORDERED: Methylergonovine 0.2 MG/1 ML Amp IM PRN (11:26)
[2019-08-06] MEDS ORDERED: Sodium Chloride 0.9% 10 ML Syringe FLUSH PRN (11:26)
[2019-08-06] MEDS ORDERED: Misoprostol 200 MCG Tab PO PRN (11:26)
[2019-08-06] MEDS ORDERED: Water For Irrigation,Sterile 1,000 ML Container IRR PRN (11:26)
[2019-08-06] MEDS ORDERED: Sodium Chloride 0.9% 10 ML SDV IV PRN (11:26)
[2019-08-06] MEDS ORDERED: Lidocaine 1% 50 ML MDV INJECT PRN (11:26)
[2019-08-06] MEDS ORDERED: Carboprost Tromethamine 250 MCG/1 ML Amp IM PRN (11:26)
[2019-08-06] MEDS ORDERED: Terbutaline 1 MG/ML SDV SUBCUT PRN (11:26)
[2019-08-06] MEDS ORDERED: Sodium Chloride 0.9% 2.5 ML Syringe FLUSH PRN (11:26)
[2019-08-06] MEDS ORDERED: Oxytocin/0.9 % Sodium Chloride 30 UNIT/500 ML BAG IV SCH ×2 (11:30)
[2019-08-06] MEDS ORDERED: Lactated Ringers 1,000 ML IV SCH (11:30)
[2019-08-06] MEDS ORDERED: Misoprostol 25 MCG (1/4 of 100 MCG) Tab VAG PRN (12:00)
[2019-08-06] MEDS ORDERED: Misoprostol 25 MCG (1/4 of 100 MCG) Tab PO PRN (12:00)
--- NOTE | 2019-08-06 15:29 | PCM.LDHP ---
L&D History of Present Illness - General Date of Service: 08/06/19 Admit Problem/Dx: Patient Status Order with Admit Dx/Problem 08/06/19 11:26 Patient Status [ADT] Routine Admission Diagnosis/Problem Admission Diagnosis/Problem - planned 08/06/19 15:23 28yo EDC 08/06/2019 40 0/7wks A+, RI, GBS neg. IOL for term Source of Information: Patient History Limitations: Reports: No Limitations - History of Present Illness Improves with: Reports: None Worsens with: Reports: None Associated Symptoms: Reports: N - Related Data Allergies/Adverse Reactions: Allergies Allergy/AdvReac Type Severity Reaction Status Date / Time No Known Allergies Allergy Verified 05/26/17 05:27 Home Medications: Home Meds Acetaminophen [Tylenol] 325 mg PO PRN 08/06/19 [History] Pnv No.95/Ferrous Fum/Folic AC [ Vitamin Tablet] 1 tab PO DAILY [History] Past Medical History - Past Health History Medical/Surgical History: Denies Medical/Surgical History [employer] History: Reports: - Infectious Disease History Infectious Disease History: Reports: Chicken Pox - Past Surgical History HEENT Surgical History: Reports: Oral Surgery Social & Family History - Family History Family Medical History: Noncontributory Musculoskeletal: Reports: Back pain, Chronic, Other (See Below) Other Musculoskeletal Family History: Grandmother had back surgery. Oncologic: Reports: Breast - Tobacco Use Smoking Status *Q: Never Smoker Second Hand Smoke Exposure: No - Caffeine Use Caffeine Use: Reports: Coffee - Recreational Drug Use Recreational Drug Use: No H&P Review of Systems - Review of Systems: Review Of Systems: See Below General: Reports: No Symptoms HEENT: Reports: No Symptoms Pulmonary: Reports: No Symptoms Cardiovascular: Reports: No Symptoms Gastrointestinal: Reports: No Symptoms Genitourinary: Reports: No Symptoms Musculoskeletal: Reports: No Symptoms Skin: Reports: No Symptoms Psychiatric: Reports: No Symptoms Neurological: Reports: No Symptoms Hematologic/Lymphatic: Reports: No Symptoms Immunologic: Reports: No Symptoms L&D Exam - Exam Exam: See Below - Vital Signs Weight: 84.368 kg - OB Specific Contraction Intensity: Mild Movement: Active Heart Tones: Present Heart Tones per Min: 145 Heart Rate (FHR) Variability: Moderate (6-25 bmp) Presentation: Vertex - Holloway Score Holloway Score Cervix Position: Posterior Holloway Score Consistency: Soft Holloway Score Effacement: 51-70% Holloway Score Dilation: 1-2 cm Holloway Score 's Station: -3 Holloway Score Total: 5 - Exam General: Alert, Oriented, Cooperative HEENT: Hearing Intact Lungs: Clear to Auscultation, Normal Respiratory Effort Cardiovascular: Regular Rate, Regular Rhythm, Normal S1, Normal S2 GI/Abdominal Exam: Soft, Non-Tender Rectal Exam: Deferred Genitourinary: Cervical dilitation Back Exam: Full Range of Motion Extremities: Normal Range of Motion, No Pedal Edema Skin: Warm, Dry, Intact Neurological: Strength Equal Bilateral, Normal Speech, Normal Tone, Sensation Intact Psychiatric: Alert, Normal Affect, Normal Mood - Patient Data Lab Results Last 24 hrs: Laboratory Results - last 24 hr 08/06/19 08/06/19 Range/Units 11:53 11:53 WBC 10.60 (4.0-11.0) K/uL RBC 3.98 L (4.30-5.90) M/uL Hgb 13.0 (12.0-16.0) g/dL Hct 37.8 (36.0-46.0) % MCV 95.0 (80.0-98.0) fL MCH 32.7 H (27.0-32.0) pg MCHC 34.4 (31.0-37.0) g/dL RDW Std Deviation 49.3 (28.0-62.0) fl RDW Coeff of Karly 14 (11.0-15.0) % Plt Count 265 (150-400) K/uL MPV 9.90 (7.40-12.00) fL Nucleated RBC % 0.0 /100WBC Nucleated RBCs # 0 K/uL Blood Type A POSITIVE Antibody Screen NEGATIVE Result Diagrams: 08/06/19 11:53 - Problem List (1) Supervision of normal IUP (intrauterine ) in multigravida SNOMED Code(s): 939463178, 764909367, 374436588 ICD Code: Z34.80 - ENCOUNTER FOR SUPRVSN OF NORMAL , UNSP TRIMESTER Status: Acute Priority: High Current Visit: Yes Qualifiers: Trimester: third trimester Qualified Code(s): Z34.83 - Encounter for supervision of other normal , third trimester Problem List Initiated/Reviewed/Updated: Yes Orders Last 24hrs: Active Orders 24 hr Category Date Time Status Patient Status [ADT] Routine ADT 08/06/19 11:26 Active Bedrest Bathroom Privileges [RC] ASDIRECTED Care 08/06/19 11:26 Active Communication Order [RC] ASDIRECTED Care 08/06/19 11:26 Active Communication Order [RC] ASDIRECTED Care 08/06/19 11:26 Active Communication Order [RC] ASDIRECTED Care 08/06/19 11:26 Active Heart Tones [RC] CONTINUOUS Care 08/06/19 11:26 Active Non Stress Test [RC] PER UNIT ROUTINE Care 08/06/19 11:26 Active May Shower [RC] ASDIRECTED Care 08/06/19 11:26 Active Notify Provider [RC] PRN Care 08/06/19 11:26 Active Notify Provider [RC] PRN Care 08/06/19 11:26 Active Notify Provider [RC] PRN Care 08/06/19 11:26 Active Notify Provider [RC] STAT Care 08/06/19 11:26 Active Oxygen Therapy [RC] ASDIRECTED Care 08/06/19 11:26 Active Up ad Elaine [RC] ASDIRECTED Care 08/06/19 11:26 Active Vaginal Exam [RC] PRN Care 08/06/19 11:26 Active Vaginal Exam [RC] PRN Care 08/06/19 11:26 Active Vital Signs [RC] PER UNIT ROUTINE Care 08/06/19 11:26 Active Vital Signs [RC] PER UNIT ROUTINE Care 08/06/19 11:26 Active RPR (SYPHILIS SERO) W/ RFLX [REF] Routine Lab 08/06/19 11:53 Received Carboprost Tromethamine [Hemabate DS] Med 08/06/19 11:26 Active 250 mcg IM ASDIRECTED PRN Lactated Ringers [Ringers, Lactated] 1,000 ml Med 08/06/19 11:30 Active IV ASDIRECTED Lidocaine 1% [Xylocaine 1%] Med 08/06/19 11:26 Active 50 ml INJECT ONETIME PRN Methylergonovine [Methergine] Med 08/06/19 11:26 Active 0.2 mg IM ASDIRECTED PRN Nalbuphine [Nubain] Med 08/06/19 11:26 Active 10 mg IVPUSH Q1H PRN Oxytocin/0.9 % Sodium Chloride [Oxytocin 30 Unit/500 ML Med 08/06/19 11:30 Active -NS] 30 unit in 500 ml IV ASDIRECTED Oxytocin/0.9 % Sodium Chloride [Oxytocin 30 Unit/500 ML Med 08/06/19 11:30 Active -NS] 30 unit in 500 ml IV TITRATE Sodium Chloride 0.9% [Normal Saline] Med 08/06/19 11:26 Active 10 ml IV ASDIRECTED PRN Sodium Chloride 0.9% [Saline Flush] Med 08/06/19 11:26 Active 10 ml FLUSH ASDIRECTED PRN Sodium Chloride 0.9% [Saline Flush] Med 08/06/19 11:26 Active 2.5 ml FLUSH ASDIRECTED PRN Terbutaline [Brethine] Med 08/06/19 11:26 Active 0.25 mg SUBCUT ASDIRECTED PRN Tranexamic Acid [Cyklokapron] 1,000 mg Med 08/06/19 11:26 Active Sodium Chloride 0.9% [Normal Saline] 100 ml IV ONETIME Water For Irrigation,Sterile [Sterile Water for Med 08/06/19 11:26 Active Irrigation] 1,000 ml IRR ASDIRECTED PRN miSOPROStoL [Cytotec] Med 08/06/19 11:26 Active 200 mcg PO ONETIME PRN miSOPROStoL [Cytotec] Med 08/06/19 12:00 Active 25 mcg PO ONETIME PRN miSOPROStoL [Cytotec] Med 08/06/19 12:00 Active 25 mcg VAG Q4H PRN Scalp Electrode [WOMSER] Per Unit Routine Oth 08/06/19 11:26 Ordered Medication Administration Instruction [OM.PC] Q3H Oth 08/06/19 11:30 Ordered Peripheral IV Insertion Adult [OM.PC] Routine Oth 08/06/19 11:26 Ordered Resuscitation Status Routine Resus Stat 08/06/19 11:26 Ordered Medication Orders Carboprost Tromethamine (Hemabate Ds) 250 mcg IM ASDIRECTED PRN PRN Reason: Post Hemorrhage Lactated Ringer's (Ringers, Lactated) 1,000 mls @ 150 mls/hr IV ASDIRECTED MARCO A Last Admin: 08/06/19 11:50 Dose: 150 mls/hr Oxytocin/Sodium Chloride (Oxytocin 30 Unit/500 Ml-Ns) 30 unit in 500 mls @ 2 mls/hr IV TITRATE MARCO A; Protocol Oxytocin/Sodium Chloride (Oxytocin 30 Unit/500 Ml-Ns) 30 unit in 500 mls @ 500 mls/hr IV ASDIRECTED MARCO A Tranexamic Acid 1,000 mg/ (Sodium Chloride) 110 mls @ 660 mls/hr IV ONETIME PRN PRN Reason: Bleeding Lidocaine HCl (Xylocaine 1%) 50 ml INJECT ONETIME PRN PRN Reason: Laceration repair Methylergonovine Maleate (Methergine) 0.2 mg IM ASDIRECTED PRN PRN Reason: Post Hemorrhage Misoprostol (Cytotec) 25 mcg VAG Q4H PRN PRN Reason: Cervical Ripening Last Admin: 08/06/19 12:03 Dose: 25 mcg Misoprostol (Cytotec) 200 mcg PO ONETIME PRN PRN Reason: Post Hemorrhage Misoprostol (Cytotec) 25 mcg PO ONETIME PRN PRN Reason: Cervical Ripening Last Admin: 08/06/19 12:03 Dose: 25 mcg Nalbuphine HCl (Nubain) 10 mg IVPUSH Q1H PRN PRN Reason: Pain (severe 7-10) Sodium Chloride (Saline Flush) 10 ml FLUSH ASDIRECTED PRN PRN Reason: Keep Vein Open Sodium Chloride (Saline Flush) 2.5 ml FLUSH ASDIRECTED PRN PRN Reason: Keep Vein Open Sodium Chloride (Normal Saline) 10 ml IV ASDIRECTED PRN PRN Reason: IV Use Sterile Water (Sterile Water For Irrigation) 1,000 ml IRR ASDIRECTED PRN PRN Reason: delivery Terbutaline Sulfate (Brethine) 0.25 mg SUBCUT ASDIRECTED PRN PRN Reason: Tacysystole Assessment/Plan Comment:: IOL A: 28yo EDC 08/06/2019 40 0/7wks A+, RI, GBS neg. IOL for term P: Admit, cytotec to pitocin, epidural prn, anticipate , Dr Manuel updated
[2019-08-06] MEDS ORDERED: fentaNYL 100 MCG/2 ML SDV ONE (16:25)
[2019-08-06] MEDS ORDERED: Ropivacaine HCl/PF 100 ML ONE (16:25)
--- NOTE | 2019-08-06 16:45 | PCM.PREANE ---
Preanesthetic Assessment - Anesthesia/Transfusion/Family Hx Anesthesia History: Prior Anesthesia Without Reaction Family History of Anesthesia Reaction: No Transfusion History: No Prior Transfusion(s) Intubation History: Unknown - Physical Assessment NPO Status Date: 08/06/19 NPO Status Time: 15:00 Height: 1.6 m Weight: 84.368 kg ASA Class: 1 - Lab Values: Laboratory Last Values WBC 10.60 K/uL (4.0-11.0) 08/06/19 11:53 RBC 3.98 M/uL (4.30-5.90) L 08/06/19 11:53 Hgb 13.0 g/dL (12.0-16.0) 08/06/19 11:53 Hct 37.8 % (36.0-46.0) 08/06/19 11:53 MCV 95.0 fL (80.0-98.0) 08/06/19 11:53 MCH 32.7 pg (27.0-32.0) H 08/06/19 11:53 MCHC 34.4 g/dL (31.0-37.0) 08/06/19 11:53 RDW Std Deviation 49.3 fl (28.0-62.0) 08/06/19 11:53 RDW Coeff of Karly 14 % (11.0-15.0) 08/06/19 11:53 Plt Count 265 K/uL (150-400) 08/06/19 11:53 MPV 9.90 fL (7.40-12.00) 08/06/19 11:53 Nucleated RBC % 0.0 /100WBC 08/06/19 11:53 Nucleated RBCs # 0 K/uL 08/06/19 11:53 Blood Type A POSITIVE 08/06/19 11:53 Antibody Screen NEGATIVE 08/06/19 11:53 - Allergies Allergies/Adverse Reactions: Allergies Allergy/AdvReac Type Severity Reaction Status Date / Time No Known Allergies Allergy Verified 05/26/17 05:27 - Acknowledgements Anesthesia Type Planned: Epidural Pt an Appropriate Candidate for the Planned Anesthesia: Yes Alternatives and Risks of Anesthesia Discussed w Pt/Guardian: Yes Pt/Guardian Understands and Agrees with Anesthesia Plan: Yes PreAnesthesia Questionnaire - Past Health History Medical/Surgical History: Denies Medical/Surgical History [employer] History: Reports: - Infectious Disease History Infectious Disease History: Reports: Chicken Pox - Past Surgical History HEENT Surgical History: Reports: Oral Surgery - SUBSTANCE USE Smoking Status *Q: Never Smoker Second Hand Smoke Exposure: No Recreational Drug Use History: No - HOME MEDS Home Medications: Home Meds Acetaminophen [Tylenol] 325 mg PO PRN 08/06/19 [History] Pnv No.95/Ferrous Fum/Folic AC [ Vitamin Tablet] 1 tab PO DAILY [History] - CURRENT (IN HOUSE) MEDS Current Meds: Current Medications Carboprost Tromethamine (Hemabate Ds) 250 mcg IM ASDIRECTED PRN PRN Reason: Post Hemorrhage Lactated Ringer's (Ringers, Lactated) 1,000 mls @ 150 mls/hr IV ASDIRECTED MARCO A Last Admin: 08/06/19 11:50 Dose: 150 mls/hr Oxytocin/Sodium Chloride (Oxytocin 30 Unit/500 Ml-Ns) 30 unit in 500 mls @ 2 mls/hr IV TITRATE MARCO A; Protocol Oxytocin/Sodium Chloride (Oxytocin 30 Unit/500 Ml-Ns) 30 unit in 500 mls @ 500 mls/hr IV ASDIRECTED MARCO A Tranexamic Acid 1,000 mg/ (Sodium Chloride) 110 mls @ 660 mls/hr IV ONETIME PRN PRN Reason: Bleeding Lidocaine HCl (Xylocaine 1%) 50 ml INJECT ONETIME PRN PRN Reason: Laceration repair Methylergonovine Maleate (Methergine) 0.2 mg IM ASDIRECTED PRN PRN Reason: Post Hemorrhage Misoprostol (Cytotec) 25 mcg VAG Q4H PRN PRN Reason: Cervical Ripening Last Admin: 08/06/19 12:03 Dose: 25 mcg Misoprostol (Cytotec) 200 mcg PO ONETIME PRN PRN Reason: Post Hemorrhage Misoprostol (Cytotec) 25 mcg PO ONETIME PRN PRN Reason: Cervical Ripening Last Admin: 08/06/19 12:03 Dose: 25 mcg Nalbuphine HCl (Nubain) 10 mg IVPUSH Q1H PRN PRN Reason: Pain (severe 7-10) Sodium Chloride (Saline Flush) 10 ml FLUSH ASDIRECTED PRN PRN Reason: Keep Vein Open Sodium Chloride (Saline Flush) 2.5 ml FLUSH ASDIRECTED PRN PRN Reason: Keep Vein Open Sodium Chloride (Normal Saline) 10 ml IV ASDIRECTED PRN PRN Reason: IV Use Sterile Water (Sterile Water For Irrigation) 1,000 ml IRR ASDIRECTED PRN PRN Reason: delivery Terbutaline Sulfate (Brethine) 0.25 mg SUBCUT ASDIRECTED PRN PRN Reason: Tacysystole Discontinued Medications Fentanyl (Sublimaze) Confirm Administered Dose 100 mcg .ROUTE .STK-MED ONE Stop: 08/06/19 16:26 Ropivacaine (Naropin 0.2%) Confirm Administered Dose 100 mls @ as directed .ROUTE .STK-MED ONE Stop: 08/06/19 16:26
--- NOTE | 2019-08-06 16:48 | PCM.PRNOTE ---
- Free Text/Narrative Note: Anes Note Patient requests epidural for L&D> Sitting position level L3-L4 midline approach. Sterile technique. Chloraprep scrub to lumbar area. Sterile fenestrated drape applied. Epidural space easily achieved single attemtp with ease using CALISTA technique. CALISTA at 3 cm. Cath threaded 5 cm with ease. Cath secured a tskin at 9 cm using sterile clear adhesive dressing. 1634 Test 3 cc 1.5% lido with epi negative. 1637 Load 10 cc 0.2% ropivicaine iwth 1 mcg cc fentanyl in slow divided doses. 1642 Pump started with 90 cc same solution. rate is 8 cc hr with 6 cc q 20 min prn bolus. Allison well. Time with patient [id number] Tesfaye Godinez CRNA
--- NOTE | 2019-08-06 18:12 | PCM.DEL ---
L & D Note - General Info Date of Service: 08/06/19 Mother's Due Date: 08/06/19 - Delivery Note Labor: Spontaneous Cervical Ripening Method: Misoprostil Delivery Outcome: Livebirth Delivery Method: Spontaneous Vaginal Delivery-Single Infant Delivery Mode: Spontaneous Presentation: Vertex Nuchal Cord: None Anesthesia Type: Epidural Episiotomy Type: None Laceration: None Placenta: Intact, Spontaneous Cord: 3 Vessels Estimated Blood Loss: 100 Resuscitation Needed: No Score 1 min: 9 Score 5 min: 9 Second Stage Interventions: Reports: Pushing, Pulls Own Legs Back Delivery Comments (Free Text/Narrative):: of viable male, head delivered with good pushing, shoulders and body followed easily, FOB assisted with delivery. with spont cry placed on mothers abd with RN at for evaluation. Delayed cord clamping. Pitocin to IVF. Cord clamped and cut by FOB. Cord blood collected. Placenta delivered grossly intact. Inspection noted intact perineum. Noted right bartholin gland enlarged. EBL 100cc. APGARS 9/9, Wt: pending breast feeding. Mom and baby stable. Induction Criteria - Holloway Score Holloway Score Dilation: 1-2 cm Holloway Score Effacement: 40-50% Holloway Score 's Station: -3 Holloway Score Consistency: Soft Holloway Score Cervix Position: Posterior Holloway Score Total: 4 Holloway Score Presenting Part: Reports: Cephalic - Induction Gestational Age >/= 39 wks: Yes Estimated Pelvis: Reports: Adequate Reassuring Monitoring Strip: Yes Absence of Tachy Systole: Yes - General Info Date of Service: 08/06/19 Admission Dx/Problem (Free Text): Patient Status Order with Admit Dx/Problem 08/06/19 11:26 Patient Status [ADT] Routine Admission Diagnosis/Problem Admission Diagnosis/Problem - planned 08/06/19 15:23 28yo EDC 08/06/2019 40 0/7wks A+, RI, GBS neg. IOL for term Functional Status: Reports: Pain Controlled - Review of Systems General: Reports: No Symptoms HEENT: Reports: No Symptoms Pulmonary: Reports: No Symptoms Cardiovascular: Reports: No Symptoms Gastrointestinal: Reports: No Symptoms Genitourinary: Reports: No Symptoms Musculoskeletal: Reports: No Symptoms Skin: Reports: No Symptoms Neurological: Reports: No Symptoms Psychiatric: Reports: No Symptoms - Patient Data Weight - Most Recent: 84.368 kg Lab Results Last 24 Hours: Laboratory Results - last 24 hr 08/06/19 08/06/19 Range/Units 11:53 11:53 WBC 10.60 (4.0-11.0) K/uL RBC 3.98 L (4.30-5.90) M/uL Hgb 13.0 (12.0-16.0) g/dL Hct 37.8 (36.0-46.0) % MCV 95.0 (80.0-98.0) fL MCH 32.7 H (27.0-32.0) pg MCHC 34.4 (31.0-37.0) g/dL RDW Std Deviation 49.3 (28.0-62.0) fl RDW Coeff of Karly 14 (11.0-15.0) % Plt Count 265 (150-400) K/uL MPV 9.90 (7.40-12.00) fL Nucleated RBC % 0.0 /100WBC Nucleated RBCs # 0 K/uL Blood Type A POSITIVE Antibody Screen NEGATIVE Med Orders - Current: Current Medications Carboprost Tromethamine (Hemabate Ds) 250 mcg IM ASDIRECTED PRN PRN Reason: Post Hemorrhage Lactated Ringer's (Ringers, Lactated) 1,000 mls @ 150 mls/hr IV ASDIRECTED MARCO A Last Admin: 08/06/19 11:50 Dose: 150 mls/hr Oxytocin/Sodium Chloride (Oxytocin 30 Unit/500 Ml-Ns) 30 unit in 500 mls @ 2 mls/hr IV TITRATE MARCO A; Protocol Oxytocin/Sodium Chloride (Oxytocin 30 Unit/500 Ml-Ns) 30 unit in 500 mls @ 500 mls/hr IV ASDIRECTED MARCO A Tranexamic Acid 1,000 mg/ (Sodium Chloride) 110 mls @ 660 mls/hr IV ONETIME PRN PRN Reason: Bleeding Lidocaine HCl (Xylocaine 1%) 50 ml INJECT ONETIME PRN PRN Reason: Laceration repair Methylergonovine Maleate (Methergine) 0.2 mg IM ASDIRECTED PRN PRN Reason: Post Hemorrhage Misoprostol (Cytotec) 25 mcg VAG Q4H PRN PRN Reason: Cervical Ripening Last Admin: 02/16/20 12:03 Dose: 25 mcg Misoprostol (Cytotec) 200 mcg PO ONETIME PRN PRN Reason: Post Hemorrhage Misoprostol (Cytotec) 25 mcg PO ONETIME PRN PRN Reason: Cervical Ripening Last Admin: 08/06/19 12:03 Dose: 25 mcg Nalbuphine HCl (Nubain) 10 mg IVPUSH Q1H PRN PRN Reason: Pain (severe 7-10) Sodium Chloride (Saline Flush) 10 ml FLUSH ASDIRECTED PRN PRN Reason: Keep Vein Open Sodium Chloride (Saline Flush) 2.5 ml FLUSH ASDIRECTED PRN PRN Reason: Keep Vein Open Sodium Chloride (Normal Saline) 10 ml IV ASDIRECTED PRN PRN Reason: IV Use Sterile Water (Sterile Water For Irrigation) 1,000 ml IRR ASDIRECTED PRN PRN Reason: delivery Terbutaline Sulfate (Brethine) 0.25 mg SUBCUT ASDIRECTED PRN PRN Reason: Tacysystole Discontinued Medications Fentanyl (Sublimaze) Confirm Administered Dose 100 mcg .ROUTE .STK-MED ONE Stop: 08/06/19 16:26 Ropivacaine (Naropin 0.2%) Confirm Administered Dose 100 mls @ as directed .ROUTE .STK-MED ONE Stop: 08/06/19 16:26 - Exam General: Alert, Oriented, Cooperative, No Acute Distress Lungs: Normal Respiratory Effort GI/Abdominal Exam: Soft, Non-Tender (Female) Exam: Normal External Exam, Normal Bimanual Exam, Vaginal Bleeding. No: Cervical Lesions, Vaginal Lesions, Vaginal Tears Back Exam: Normal Inspection Extremities: Normal Inspection, No Pedal Edema Skin: Warm, Dry, Intact Neurological: No New Focal Deficit, Normal Speech, Normal Tone, Cranial Nerves Intact Psy/Mental Status: Alert, Normal Affect, Normal Mood - Problem List & Annotations (1) Supervision of normal IUP (intrauterine ) in multigravida SNOMED Code(s): 575689644, 185152595, 675509317 Code(s): Z34.80 - ENCOUNTER FOR SUPRVSN OF NORMAL , UNSP TRIMESTER Status: Acute Priority: High Current Visit: Yes Qualifiers: Trimester: third trimester Qualified Code(s): Z34.83 - Encounter for supervision of other normal , third trimester (2) (normal spontaneous vaginal delivery) SNOMED Code(s): 10411536, 744731690 Code(s): O80 - ENCOUNTER FOR FULL-TERM UNCOMPLICATED DELIVERY Status: Acute Priority: High Current Visit: Yes - Problem List Review Problem List Initiated/Reviewed/Updated: Yes - My Orders Last 24 Hours: My Active Orders 08/06/19 11:26 Patient Status [ADT] Routine Bedrest Bathroom Privileges [RC] ASDIRECTED Communication Order [RC] ASDIRECTED Communication Order [RC] ASDIRECTED Communication Order [RC] ASDIRECTED Heart Tones [RC] CONTINUOUS Non Stress Test [RC] PER UNIT ROUTINE May Shower [RC] ASDIRECTED Notify Provider [RC] PRN Notify Provider [RC] PRN Notify Provider [RC] PRN Notify Provider [RC] STAT Oxygen Therapy [RC] ASDIRECTED Up ad Elaine [RC] ASDIRECTED Vaginal Exam [RC] PRN Vaginal Exam [RC] PRN Vital Signs [RC] PER UNIT ROUTINE Vital Signs [RC] PER UNIT ROUTINE Carboprost Tromethamine [Hemabate DS] 250 mcg IM ASDIRECTED PRN Lidocaine 1% [Xylocaine 1%] 50 ml INJECT ONETIME PRN Methylergonovine [Methergine] 0.2 mg IM ASDIRECTED PRN Nalbuphine [Nubain] 10 mg IVPUSH Q1H PRN Sodium Chloride 0.9% [Normal Saline] 10 ml IV ASDIRECTED PRN Sodium Chloride 0.9% [Saline Flush] 10 ml FLUSH ASDIRECTED PRN Sodium Chloride 0.9% [Saline Flush] 2.5 ml FLUSH ASDIRECTED PRN Terbutaline [Brethine] 0.25 mg SUBCUT ASDIRECTED PRN Tranexamic Acid [Cyklokapron] 1,000 mg Sodium Chloride 0.9% [Normal Saline] 100 ml IV ONETIME Water For Irrigation,Sterile [Sterile Water for Irrigation] 1,000 ml IRR ASDIRECTED PRN miSOPROStoL [Cytotec] 200 mcg PO ONETIME PRN Scalp Electrode [WOMSER] Per Unit Routine Peripheral IV Insertion Adult [OM.PC] Routine Resuscitation Status Routine 08/06/19 11:30 Lactated Ringers [Ringers, Lactated] 1,000 ml IV ASDIRECTED Oxytocin/0.9 % Sodium Chloride [Oxytocin 30 Unit/500 ML-NS] 30 unit in 500 ml IV ASDIRECTED Oxytocin/0.9 % Sodium Chloride [Oxytocin 30 Unit/500 ML-NS] 30 unit in 500 ml IV TITRATE Medication Administration Instruction [OM.PC] Q3H 08/06/19 11:53 RPR (SYPHILIS SERO) W/ RFLX [REF] Routine 08/06/19 12:00 miSOPROStoL [Cytotec] 25 mcg PO ONETIME PRN miSOPROStoL [Cytotec] 25 mcg VAG Q4H PRN - Plan Plan:: IOL A: 28yo EDC 08/06/2019 40 0/7wks A+, RI, GBS neg. IOL for term P: Admit, cytotec to pitocin, epidural prn, anticipate , Dr Manuel updated Delivery A: of male, APGARS 9/9 Wt pending BF, Intact perineum. EBL 100cc Stable P: Routine pp plan of care
[2019-08-06] MEDS ORDERED: Witch Hazel Medicated Pads 40/Jar TOP PRN (18:17)
[2019-08-06] MEDS ORDERED: Docusate Sodium 100 MG Cap PO PRN (18:17)
[2019-08-06] MEDS ORDERED: Bisacodyl 10 MG Supp RECTAL PRN (18:17)
[2019-08-06] MEDS ORDERED: Ibuprofen 800 MG Tab PO PRN (18:17)
[2019-08-06] MEDS ORDERED: Ibuprofen 400 MG Tab PO PRN (18:17)
[2019-08-06] MEDS ORDERED: Benzocaine/Menthol 20%-0.5% Spray 78 GM Cannister TOP PRN (18:17)
[2019-08-06] MEDS ORDERED: Lanolin 100% Cream 7 GM Tube TOP PRN (18:17)
[2019-08-06] MEDS ORDERED: oxyCODONE 5 MG Tab PO PRN (18:17)
[2019-08-06] MEDS ORDERED: Acetaminophen 500 MG Tab PO PRN ×2 (18:17)
--- NOTE | 2019-08-07 08:50 | PCM.DCSUM1 ---
Discharge Summary - Hospital Course Free Text/Narrative:: Discharge home with . Follow up in 6 weeks for exam. Diagnosis: Stroke: No Modified [place] Scale: No Symptoms at All Modified [place] Scale Score: 0 - Discharge Data Discharge Date: 08/07/19 Discharge Disposition: Home, Self-Care 01 Condition: Good - Discharge Diagnosis/Problem(s) (1) (normal spontaneous vaginal delivery) SNOMED Code(s): 09918320, [id number] ICD Code: O80 - ENCOUNTER FOR FULL-TERM UNCOMPLICATED DELIVERY Status: Acute Priority: High Current Visit: Yes - Patient Instructions Diet: Regular Diet as Tolerated, Drink 8-10+ Glasses/Day Activity: As Tolerated, Full Weight Bearing, No Strenuous Activities, Rest and Relax Today Driving: May Drive Today Showering/Bathing: May Shower Notify Provider of: Fever, Increased Pain, Swelling and Redness, Drainage, Nausea and/or Vomiting - Discharge Plan *PRESCRIPTION DRUG MONITORING PROGRAM REVIEWED*: Not Applicable *COPY OF PRESCRIPTION DRUG MONITORING REPORT IN PATIENT EARLENE: Not Applicable Prescriptions/Med Rec: Ibuprofen [Motrin] 800 mg PO Q6H PRN #90 tablet PRN Reason: Pain Home Medications: Home Meds Acetaminophen [Tylenol] 325 mg PO PRN 08/06/19 [History] Pnv No.95/Ferrous Fum/Folic AC [ Vitamin Tablet] 1 tab PO DAILY [History] Ibuprofen [Motrin] 800 mg PO Q6H PRN #90 tablet 08/07/19 [Rx] Oxygen Therapy Mode: Room Air - Discharge Summary/Plan Comment DC Time >30 min.: Yes - General Info Date of Service: 08/07/19 Admission Dx/Problem (Free Text: Patient Status Order with Admit Dx/Problem 08/06/19 11:26 Patient Status [ADT] Routine Admission Diagnosis/Problem Admission Diagnosis/Problem - planned 08/06/19 15:23 28yo EDC 08/06/2019 40 0/7wks A+, RI, GBS neg. IOL for term Functional Status: Reports: Pain Controlled, Ambulating, Urinating, New Symptoms - Review of Systems General: Reports: No Symptoms HEENT: Reports: No Symptoms Pulmonary: Reports: No Symptoms Cardiovascular: Reports: No Symptoms Gastrointestinal: Reports: No Symptoms Genitourinary: Reports: No Symptoms Musculoskeletal: Reports: No Symptoms Skin: Reports: No Symptoms Neurological: Reports: No Symptoms Psychiatric: Reports: No Symptoms - Patient Data Vitals - Most Recent: Last Vital Signs Temp 97.6 F 08/07/19 04:00 Pulse 64 08/07/19 04:00 Resp 18 08/07/19 04:00 BP 112/68 08/07/19 04:00 Pulse Ox 96 08/07/19 04:00 Weight - Most Recent: 186 lb I&O - Last 24 hours: Intake & Output 08/06/19 08/07/19 08/07/19 22:59 06:59 14:59 Output Total 250 Balance -250 Lab Results - Last 24 hrs: Laboratory Results - last 24 hr 08/06/19 08/06/19 Range/Units 11:53 11:53 WBC 10.60 (4.0-11.0) K/uL RBC 3.98 L (4.30-5.90) M/uL Hgb 13.0 (12.0-16.0) g/dL Hct 37.8 (36.0-46.0) % MCV 95.0 (80.0-98.0) fL MCH 32.7 H (27.0-32.0) pg MCHC 34.4 (31.0-37.0) g/dL RDW Std Deviation 49.3 (28.0-62.0) fl RDW Coeff of Karly 14 (11.0-15.0) % Plt Count 265 (150-400) K/uL MPV 9.90 (7.40-12.00) fL Nucleated RBC % 0.0 /100WBC Nucleated RBCs # 0 K/uL Blood Type A POSITIVE Antibody Screen NEGATIVE Med Orders - Current: Current Medications Acetaminophen (Tylenol Extra Strength) 500 mg PO Q4H PRN PRN Reason: Pain Acetaminophen (Tylenol Extra Strength) 1,000 mg PO Q4H PRN PRN Reason: Pain Benzocaine/Menthol (Dermoplast Pain Relief 20%-0.5% [place]orn) 0 gm TOP ASDIRECTED PRN PRN Reason: Perineal Comfort Measure Last Admin: 08/06/19 20:20 Dose: 1 canister Bisacodyl (Dulcolax) 10 mg RECTAL ONETIME PRN PRN Reason: Constipation Docusate Sodium (Colace) 100 mg PO BID PRN PRN Reason: Constipation Last Admin: 08/06/19 20:34 Dose: 100 mg Emollient Ointment (Lansinoh Hpa) 0 gm TOP ASDIRECTED PRN PRN Reason: Sore Nipples Ibuprofen (Motrin) 400 mg PO Q4H PRN PRN Reason: Pain Ibuprofen (Motrin) 800 mg PO Q6H PRN PRN Reason: Pain Last Admin: 08/06/19 20:34 Dose: 800 mg Oxycodone HCl (Oxycodone) 5 mg PO Q2H PRN PRN Reason: Pain Witch Kaitlynn (Tucks) 1 pad TOP ASDIRECTED PRN PRN Reason: comfort care Last Admin: 08/06/19 20:20 Dose: 1 pack Discontinued Medications Carboprost Tromethamine (Hemabate Ds) 250 mcg IM ASDIRECTED PRN PRN Reason: Post Hemorrhage Fentanyl (Sublimaze) Confirm Administered Dose 100 mcg .ROUTE .STK-MED ONE Stop: 08/06/19 16:26 Lactated Ringer's (Ringers, Lactated) 1,000 mls @ 150 mls/hr IV ASDIRECTED MARCO A Last Admin: 08/06/19 11:50 Dose: 150 mls/hr Oxytocin/Sodium Chloride (Oxytocin 30 Unit/500 Ml-Ns) 30 unit in 500 mls @ 2 mls/hr IV TITRATE MARCO A; Protocol Oxytocin/Sodium Chloride (Oxytocin 30 Unit/500 Ml-Ns) 30 unit in 500 mls @ 500 mls/hr IV ASDIRECTED MARCO A Tranexamic Acid 1,000 mg/ (Sodium Chloride) 110 mls @ 660 mls/hr IV ONETIME PRN PRN Reason: Bleeding Ropivacaine (Naropin 0.2%) Confirm Administered Dose 100 mls @ as directed .ROUTE .STK-MED ONE Stop: 08/06/19 16:26 Lidocaine HCl (Xylocaine 1%) 50 ml INJECT ONETIME PRN PRN Reason: Laceration repair Methylergonovine Maleate (Methergine) 0.2 mg IM ASDIRECTED PRN PRN Reason: Post Hemorrhage Misoprostol (Cytotec) 25 mcg VAG Q4H PRN PRN Reason: Cervical Ripening Last Admin: 08/06/19 12:03 Dose: 25 mcg Misoprostol (Cytotec) 200 mcg PO ONETIME PRN PRN Reason: Post Hemorrhage Misoprostol (Cytotec) 25 mcg PO ONETIME PRN PRN Reason: Cervical Ripening Last Admin: 08/06/19 12:03 Dose: 25 mcg Nalbuphine HCl (Nubain) 10 mg IVPUSH Q1H PRN PRN Reason: Pain (severe 7-10) Sodium Chloride (Saline Flush) 10 ml FLUSH ASDIRECTED PRN PRN Reason: Keep Vein Open Sodium Chloride (Saline Flush) 2.5 ml FLUSH ASDIRECTED PRN PRN Reason: Keep Vein Open Sodium Chloride (Normal Saline) 10 ml IV ASDIRECTED PRN PRN Reason: IV Use Sterile Water (Sterile Water For Irrigation) 1,000 ml IRR ASDIRECTED PRN PRN Reason: delivery Terbutaline Sulfate (Brethine) 0.25 mg SUBCUT ASDIRECTED PRN PRN Reason: Tacysystole - Exam General: Reports: Alert, Oriented, Cooperative, No Acute Distress Lungs: Reports: Clear to Auscultation, Normal Respiratory Effort Cardiovascular: Reports: Regular Rate, Regular Rhythm GI/Abdominal Exam: Soft, Non-Tender (Female) Exam: Deferred Rectal (Female) Exam: Deferred Back Exam: Reports: Normal Inspection, Full Range of Motion Extremities: Normal Inspection, Normal Range of Motion, Non-Tender, Normal Capillary Refill Skin: Reports: Warm, Dry, Intact Neurological: Reports: No New Focal Deficit, Normal Gait, Normal Speech, Normal Tone, Strength Equal Bilateral, Reflexes Equal Bilateral, Sensation Intact Psy/Mental Status: Reports: Alert, Normal Affect, Normal Mood
== END 2019-08-07 20:44 | disposition home or self-care (01) | DRG 560 ==
LOC: MW.OB 10:53 → OBSVTOIN 18:18 → MW.OB 20:40 → UNDODISOB 08-07 20:44
PROVIDERS: ADMIT Obstetrics & Gynecology; ATTEND Obstetrics & Gynecology
DX: O80 Encounter for full-term uncomplicated delivery (principal); Z3A.40 40 weeks gestation of pregnancy; Z37.0 Single live birth
CPT/HCPCS: 01967; 36415; 51702; 59025; 59409; 85027; 86592; 86850; 86900; 86901; A9270-GY; J7120

== ENCOUNTER 2022-10-10 04:50 | Inpatient (IN) | payer BC ==
[2022-10-10] MEDS ORDERED: Sodium Chloride 0.9% 2.5 ML Syringe FLUSH PRN (04:55)
[2022-10-10] MEDS ORDERED: Terbutaline 1 MG/ML SDV SUBCUT PRN (04:55)
[2022-10-10] MEDS ORDERED: Ondansetron 4 MG/2 ML SDV IVPUSH PRN (04:55)
[2022-10-10] MEDS ORDERED: Carboprost Tromethamine 250 MCG/1 ML Amp IM PRN (04:55)
[2022-10-10] MEDS ORDERED: Misoprostol 200 MCG Tab PO PRN (04:55)
[2022-10-10] MEDS ORDERED: Misoprostol 25 MCG (1/4 of 100 MCG) Tab VAG PRN ×2 (04:55)
[2022-10-10] MEDS ORDERED: Methylergonovine 0.2 MG/1 ML Amp IM PRN (04:55)
[2022-10-10] MEDS ORDERED: Lidocaine 1% 50 ML MDV INJECT PRN (04:55)
[2022-10-10] MEDS ORDERED: Water For Irrigation,Sterile 1,000 ML Container IRR PRN (04:55)
[2022-10-10] MEDS ORDERED: Sodium Chloride 0.9% 10 ML Syringe FLUSH PRN (04:55)
[2022-10-10] MEDS ORDERED: Butorphanol 1 MG/ML SDV IVPUSH PRN (04:55)
[2022-10-10] MEDS ORDERED: Sodium Chloride 0.9% 20 ML SDV IV PRN (04:55)
[2022-10-10] MEDS ORDERED: Tranexamic Acid 1,000 MG in Sodium Chloride 0.9% 100 ML IV PRN (04:55)
[2022-10-10] MEDS ORDERED: Oxytocin/0.9 % Sodium Chloride 30 UNIT/500 ML BAG IV SCH ×2 (05:00)
[2022-10-10] MEDS: Lactated Ringers 1,000 ML IV SCH ×3 (05:50→13:22)
[2022-10-10] MEDS ORDERED: Ropivacaine/PF 400 MG/200 ML PCA ONE (11:14)
[2022-10-10] MEDS ORDERED: Dexmedetomidine 200 MCG/2 ML SDV ONE (11:14)
[2022-10-10] MEDS ORDERED: Phenylephrine HCl 0.5 MG/5 ML AMP IVPUSH PRN (11:31)
[2022-10-10] MEDS ORDERED: ePHEDrine 50 MG/ML SDV IVPUSH PRN ×2 (11:31)
[2022-10-10] MEDS ORDERED: Ropivacaine HCl/PF 400 MG in Premix Bag 1 BAG EPIDUR SCH (11:45)
[2022-10-10] MEDS ORDERED: Acetaminophen 500 MG Tab PO PRN ×2 (14:52)
[2022-10-10] MEDS ORDERED: oxyCODONE 5 MG Tab PO PRN (14:52)
[2022-10-10] MEDS ORDERED: Ibuprofen 800 MG Tab PO PRN (14:52)
[2022-10-10] MEDS ORDERED: Lanolin 100% Cream 7 GM Tube TOP PRN (14:52)
[2022-10-10] MEDS ORDERED: Docusate Sodium 100 MG Cap PO PRN (14:52)
[2022-10-10] MEDS ORDERED: Ibuprofen 400 MG Tab PO PRN (14:52)
[2022-10-10] MEDS ORDERED: Witch Hazel Medicated Pads 40/Jar TOP PRN (14:52)
[2022-10-10] MEDS ORDERED: Bisacodyl 10 MG Supp RECTAL PRN (14:52)
[2022-10-10] MEDS ORDERED: Benzocaine/Menthol 20%-0.5% Spray 78 GM Cannister TOP PRN (14:52)
== END 2022-10-11 17:15 | disposition home or self-care (01) | DRG 560 ==
LOC: MW.OBCHECK 04:50 → MW.OB 04:51 → MW.OBCHECK 04:55 → OBSVTOIN 14:53 → MW.OB 18:01
PROVIDERS: ADMIT Obstetrics & Gynecology; ATTEND Obstetrics & Gynecology
PROC: 10E0XZZ Delivery of Products of Conception, External Approach (ICD-10-PCS; principal; 2022-10-10)
PROC: 10907ZC Drainage of Amniotic Fluid, Therapeutic from Products of Conception, Via Natural or Artificial Opening (ICD-10-PCS; 2022-10-10)
PROC: 3E033VJ Introduction of Other Hormone into Peripheral Vein, Percutaneous Approach (ICD-10-PCS; 2022-10-10)
PROC: 3E0R3BZ Introduction of Anesthetic Agent into Spinal Canal, Percutaneous Approach (ICD-10-PCS; 2022-10-10)
PROC: 00HU33Z Insertion of Infusion Device into Spinal Canal, Percutaneous Approach (ICD-10-PCS; 2022-10-10)
DX: O80 Encounter for full-term uncomplicated delivery (principal); Z37.0 Single live birth; Z3A.40 40 weeks gestation of pregnancy
CPT/HCPCS: 36415; 51702; 59025; 59409; 59414; 82803; 85014; 85018; 85027; 86592; 86850; 86900; 86901; A9270-GY; J2590; J2795; J3490; J7120

== ENCOUNTER 2022-10-14 14:32 | Emergency (ER) | payer BC | END 2022-10-14 16:12 | disposition home or self-care (01) | LOC: MW.ED 14:32 | DX: K64.5 Perianal venous thrombosis (principal) | CPT/HCPCS: 46083; 99282 ==